=== PATIENT | female | born 1985 | race Caucasian/White ===

== ENCOUNTER 2021-01-06 10:11 | Emergency (ER) | payer OTHER, SELFPAY ==
--- NOTE | 2021-01-06 10:17 | ED.BACK ---
HPI - Back Pain/Injury General Chief Complaint: Back Pain/Injury Stated Complaint: back pain Time Seen by Provider: 01/06/21 10:16 Source: patient Mode of arrival: ambulatory Limitations: no limitations History of Present Illness HPI Narrative: Patient is a 35-year-old female who presents complaining of lower back pain x2 to 3 days. She has no known injury. She does report she lifts,twists, and bends frequently. She reports she does work out had not worked out until 2 days prior to start of pain. She reports increased pain with movement and muscle spasms. She denies all urinary complaints. She reports taking ibuprofen with moderate relief. She denies pain at this time, but reports will increase pain will increase with ambulation and movement. MD elicited complaint: back pain Related Data Allergies Allergy/AdvReac Type Severity Reaction Status Date / Time No Known Allergies Allergy Unknown Verified 05/29/08 08:45 Review of Systems Review of Systems: Narrative: CONSTITUTIONAL: Denies fever, chills, or sweats. EYES: Denies visual changes, redness, or discharge. ENT: Denies rhinorrhea, congestion, sore throat, or otalgia. CARDIOVASCULAR: Denies chest pain, palpitations, or edema. RESPIRATORY: Denies cough or dyspnea. GASTROINTESTINAL: Denies abdominal pain, nausea, vomiting, or diarrhea. GENITOURINARY: Denies dysuria or hematuria. SKIN: Denies rash or itching. MUSCULOSKELETAL: Reports lower back pain, denies numbness or tingling to extremities, denies loss of bowel or bladder control NEUROLOGIC: Denies headache, numbness, dizziness, or weakness. PSYCHIATRIC: Denies anxiety or depression. [facility] Past Medical History Medical History No significant past medical history Surgical History Surgical History No significant past surgical history Family History Family History Father Hypertension Mother Hypertension Family history of malignant neoplasm Other Family history of arthritis Social History Social History Smoking status: Never smoker Alcohol intake: current Gender identity (if verbalized by the patient): Female Comments At the time of signature, I have reviewed and agree with nursing past medical, surgical, social, and family history unless otherwise noted. Please see nursing chart for further information. There is no relevant family history pertinent to the presenting complaint. Exam Narrative: Exam Narrative: GENERAL: Well-appearing, well-nourished, and in no acute distress. HEAD: Normocephalic, atraumatic. EYES: EOMI. No redness or drainage. ENT: Mucous membranes pink and moist. CHEST: No respiratory distress. HEART: Regular rate and rhythm. GI: Soft, nontender without rebound, or guarding. MUSCULOSKELETAL: No bony tenderness. EXTREMITIES: Normal range of motion. No edema. SKIN: Warm, dry, no rash. NEURO: No focal deficits. Alert and oriented x3. Gait steady. PSYCH: Normal affect. No signs of depression or anxiety. Course Vital Signs Vital signs: Vital Signs Temperature 36.8 C 01/06/21 10:22 Pulse Rate 87 01/06/21 10:22 Respiratory Rate 16 01/06/21 10:22 Blood Pressure 136/95 H 01/06/21 10:22 Pulse Oximetry 98 01/06/21 10:22 Temperature 36.8 C 01/06/21 10:22 Pulse Rate 87 01/06/21 10:22 Respiratory Rate 16 01/06/21 10:22 Blood Pressure 136/95 H 01/06/21 10:22 Pulse Oximetry 98 01/06/21 10:22 Reviewed-patient is informed that they may have pre-hypertension or hypertension based on a blood pressure reading. I recommend the patient call the primary care provider listed on their discharge instructions or a physician of their choice this week to arrange follow-up for further evaluation of possible pre-hypertension or hypertension.
[2021-01-06 10:22] VITALS: BP 136/95; PULSE 87; RESP 16; TEMP 36.8; O2SAT 98
== END 2021-01-06 10:40 | disposition home or self-care (01) ==
PROVIDERS: Emergency Provider Nurse Practitioner; PCP Family Medicine
DX: M54.16 Radiculopathy, lumbar region (principal); S39.012A Strain of muscle, fascia and tendon of lower back, initial encounter; X58.XXXA Exposure to other specified factors, initial encounter
CPT/HCPCS: 99213; G0463

== ENCOUNTER 2021-04-20 10:13 | Emergency (ER) | payer OTHER, SELFPAY ==
--- NOTE | ~2021-04-20 | XR_ITS ---
EXAMINATION: XR chest 2V EXAM DATE: 04/20/2021 10:40 INDICATION: Cough x 2 weeks/sometimes productive. TECHNIQUE: Frontal and lateral projections of the chest obtained and reviewed. There is no prior noa dy for comparison. FINDINGS: The lungs are clear. There are no pleural effusions. The cardiomediastinal silhouette is within normal limits. There is no pneumothorax suspected. The bones and soft tissues are unremarkab le. IMPRESSION: Normal chest x-ray exam. Reviewed, dictated and finalized at location A. IMPRESSION: Normal chest x-ray exam.
[2021-04-20 10:23] VITALS: BP 127/88; PULSE 93; RESP 18; TEMP 36.4; O2SAT 100
[2021-04-20 10:26] VITALS: BP 127/88; PULSE 93; RESP 18; TEMP 36.4; O2SAT 100
--- NOTE | 2021-04-20 10:35 | ED.GENADULT ---
HPI - General Adult General Chief complaint: Urogenital-Female Stated complaint: UTI,Cough Source: patient Mode of arrival: ambulatory Limitations: no limitations History of Present Illness HPI narrative: Patient presents for evaluation of respiratory symptoms for last two and a half weeks. She indicates that she changed residence on April 02. She believes there is mold in the residence. 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 She reports clear rhinorrhea, productive cough of clear sputum, and bilateral eye itching. She denies any fever, chills, nausea, vomiting, body aches, sore throat, abdominal pain, shortness of breath, leg swelling or chest pain. No personal hx of DVT. No recent surgeries. She does not smoke. Over the last few days she has experienced some urinary incontinence during episodes of coughing. This morning she noticed some pink-tinged urine and blood on the tissue when wiping after urination. She has experienced some urinary frequency and mild dysuria. She denies any hesitancy or low back pain. History of regular menstruation. LMP 22 days ago. Not on contraception. Denies any vaginal discharge. Related Data Allergies Allergy/AdvReac Type Severity Reaction Status Date / Time No Known Allergies Allergy Unknown Verified 05/29/08 08:45 Review of Systems Review of Systems: Narrative: CONSTITUTIONAL: Denies fever, chills, or sweats. EYES: Denies visual changes, redness, or discharge. ENT: Reports rhinorrhea and some mild itching in the right ear. Denies sore throat CARDIOVASCULAR: Denies chest pain, palpitations, or edema. RESPIRATORY: Reports cough. Denies shortness of breath GASTROINTESTINAL: Denies abdominal pain, nausea, vomiting, or diarrhea. GENITOURINARY: Reports dysuria, urinary frequency, pink-tinged urine. Denies vaginal discharge SKIN: Denies rash or itching. MUSCULOSKELETAL: Denies back pain, joint pain, or myalgia. NEUROLOGIC: Denies headache, numbness, dizziness, or weakness. PSYCHIATRIC: Denies anxiety or depression. [facility] Past Medical History Medical History No significant past medical history Surgical History Surgical History No significant past surgical history Family History Family History Father Hypertension Mother Hypertension Family history of malignant neoplasm Other Family history of arthritis Social History Social History Smoking status: Never smoker Alcohol intake: current Gender identity (if verbalized by the patient): Female Exam Narrative: Exam Narrative: GENERAL: Well-appearing, well-nourished, and in no acute distress. HEAD: Normocephalic, atraumatic. EYES: PERRLA and EOMI. ENT: Nares clear, no rhinorrhea or epistaxis. Mucous membranes moist. Oropharynx without tonsillar hypertrophy exudate or other lesions. Bilateral TMs pearly starr nonbulging NECK: Supple. No adenopathy or masses. No carotid bruits or JVD CHEST: Clear to auscultation. No respiratory distress. No wheezes rales or rhonchi HEART: Regular rate and rhythm. No murmur heard. Normal peripheral pulses. ABDOMEN: Soft, nontender, nondistended, normal active bowel sounds. EXTREMITIES: Normal range of motion. No edema. SKIN: Warm, dry, no rash. NEURO: No focal deficits. Alert and oriented x3. PSYCH: Normal mood and affect. Course Course Emergency Course: This is a 35-year-old female who presents with respiratory symptoms for the last 2.5 weeks. This x-ray was negative. Urinalysis showed 1+ bilirubin, 3+ blood, trace protein. No evidence of infection. Pt started menstruation while here at the [facility]. Patient's symptoms are consistent with upper respiratory infection. She is having difficulty sleeping at night d
== END 2021-04-20 11:22 | disposition home or self-care (01) ==
PROVIDERS: Emergency Provider Nurse Practitioner; PCP Family Medicine
DX: J06.9 Acute upper respiratory infection, unspecified (principal)
CPT/HCPCS: 71046; 81003; 81025; 99213; G0463

== ENCOUNTER 2023-07-26 11:39 | Emergency (ER) | payer OTHER, SELFPAY ==
[2023-07-26 12:04] VITALS: BP 127/86; PULSE 99; RESP 20; TEMP 36.4; O2SAT 100
--- NOTE | 2023-07-26 12:11 | ED.GENADULT ---
HPI - General Adult General Chief complaint: Headache Stated complaint: headache Time Seen by Provider: 07/26/23 12:11 Source: patient, RN notes reviewed and old records reviewed Mode of arrival: ambulatory Limitations: no limitations History of Present Illness HPI narrative: 38-year-old female presents to the [facility] with complaints of a right-sided headache for 10 days. Has done a tele visit doc appointment, was prescribed diclofenac and promethazine. States that she did see her primary care provider, given medication which is not helping. Still having pain to the right temporal area. Reports nausea and vomiting associated. Occasional photo and phono sensitivity. Denies fevers. States that she does have hot flashes when this occurs. No neck or back pain. No change in vision. Per medical record had seen primary care provider on , given Ubrelvy and Nurtec. Per this medical record states that she was seen at an urgent care the day before, given diclofenac. States the pain was really bad last night. States she had a worse pain last night, was not able to move or get to the emergency room because she could not stop vomiting and the pain was so severe. Patient requesting an MRI and blood work. Explained to patient that we do not do blood work nor advanced testing. States that she tried calling her primary care provider and can not get an appointment until 230 tomorrow afternoon. Onset (ago): day(s) () Location: head Associated symptoms: headaches, nausea/vomiting and weakness Treatments prior to arrival: NSAID and other (Multiple prescription) Related Data Home Medications Medication Instructions Recorded Confirmed cetirizine 10 mg tablet 10 mg PO DAILY 07/26/23 07/26/23 diclofenac potassium 50 mg tablet 50 mg PO DAILY PRN Headache 07/26/23 07/26/23 promethazine 25 mg tablet 25 mg PO PRN PRN Nausea 07/26/23 07/26/23 Allergies Allergy/AdvReac Type Severity Reaction Status Date / Time No Known Allergies Allergy Unknown Verified 07/26/23 12:35 Review of Systems Review of Systems: All systems reviewed & are unremarkable except as noted in HPI and below Constitutional: Constitutional: Reports no additional constitutional complaints Eyes: Eyes: Reports no additional eye complaints ENT: Reports system reviewed and no additional complaints, except as documented Cardiovascular: Cardiovascular: Reports no additional cardiovascular complaints, Denies chest pain and Denies dyspnea Respiratory: Respiratory: Reports no additional respiratory complaints, Denies chest congestion, Denies cough and Denies dyspnea Gastrointestinal: Gastrointestinal: Reports as per HPI, Denies abdominal pain, Reports nausea and Reports vomiting Musculoskeletal: Musculoskeletal: Reports no additional musculoskeletal complaints Integumentary/Breasts: Skin/Breast: Reports system reviewed and no additional complaints, except as docu Neurologic: Reports as per HPI and Reports dizziness Psychiatric: Psychiatric: Reports no additional psychiatric complaints Allergic/Immunologic: Allergic/Immunologic: Reports no additional allergic/immunologic complaints [facility] Past Medical History Medical History No significant past medical history Surgical History Surgical History No significant past surgical history Family History Family History Father Hypertension Mother Hypertension Family history of malignant neoplasm Other Family history of arthritis Social History Social History Smoking status: Never smoker Alcohol intake: current Gender identity (if verbalized by the patient): Female Comments At the time of my signature, I reviewed and agree with the nursing past medical, surgical, social, and family history. The
== END 2023-07-26 12:26 | disposition short-term general hospital (02) ==
PROVIDERS: Emergency Provider Nurse Practitioner; PCP Family Medicine
DX: R51.9 Headache, unspecified (principal)
CPT/HCPCS: 99213; G0463

== ENCOUNTER 2023-07-26 12:40 | Emergency (ER) | payer OTHER, SELFPAY ==
--- NOTE | ~2023-07-26 | CT_ITS ---
EXAMINATION: CT brain wo con DATE: 07/26/2023 18:03 INDICATION: migraine X10d, N/V, dizziness . TECHNIQUE: Computed tomography (CT) of the head was performed without intravenous contrast. The mA wa s adjusted according to patient size. Iterative reconstruction technique was employed. The dose-lengt h product was 605.33 mGy-cm. COMPARISON: None. FINDINGS: No acute intracranial hemorrhage or extra-axial fluid collection. No hydrocephalus, mass, or herniation. No acute ischemic infarct. Unremarkable dural venous sinus attenuation. No acute osseous abnormality. The aerated spaces are clear. IMPRESSION: No acute intracranial process. Reviewed, dictated and finalized at location K.
[2023-07-26 13:15] VITALS: BP 135/95; PULSE 88; RESP 18; TEMP 36.6; O2SAT 98
[2023-07-26] MEDS: METOCLOPRAMIDE HCL INJ 10 MG/2 ML VIAL IV PUSH (17:34)
[2023-07-26] MEDS: diphenhydrAMINE HCl INJ 50 MG/ML VIAL 25 MG IV PUSH (17:34)
[2023-07-26] MEDS: SODIUM CHLORIDE 0.9% IV 1,000 ML 999 ML IV CONT (17:35)
[2023-07-26] MEDS: ACETAMINOPHEN 500 MG TABLET 1000 MG PO (17:35)
--- NOTE | 2023-07-26 17:57 | ED.HA ---
HPI - Headache General Chief Complaint: Headache Stated Complaint: headache Time Seen by Provider: 07/26/23 16:51 Source: patient Mode of arrival: ambulatory Limitations: no limitations History of Present Illness HPI Narrative: Patient is a 38-year-old female who presents ED with report of headache. Patient reports she woke up last Wednesday morning with a diffuse frontal and temporal headache. She states it has persisted since then, intermittently worsening in intensity. She has tried several medications including Ubrelvy, Nertec, advil, tylenol, excedrin w/o much relief. She states the pain became much worse last night and she thought about coming to the ED at that time. She noted having photophobia, dizziness, lightheadedness, N/V last night. She was unable to keep medications down for pain last night. Her pain did improve somewhat when she woke up this morning. She did not take anything for pain today. She states her pain is not as severe today as it was last night, but she is concerned that it has lasted this long. Patient does have history of migraines since [facility] and states this does feel typical of her usual migraines, though they do not usually persist this long. Patient denies any fevers, neck pain, focal weakness, vision changes, cough or cold symptoms, abdominal pain. Related Data Home Medications Medication Instructions Recorded Confirmed cetirizine 10 mg tablet 10 mg PO DAILY 07/26/23 07/26/23 diclofenac potassium 50 mg tablet 50 mg PO DAILY PRN Headache 07/26/23 07/26/23 promethazine 25 mg tablet 25 mg PO PRN PRN Nausea 07/26/23 07/26/23 Allergies Allergy/AdvReac Type Severity Reaction Status Date / Time No Known Allergies Allergy Unknown Verified 07/26/23 12:35 Review of Systems Review of Systems: CONSTITUTIONAL: Denies fever, chills, or sweats. EYES: Denies visual changes. ENT: Denies rhinorrhea, congestion, sore throat. CARDIOVASCULAR: Denies chest pain. RESPIRATORY: Denies cough or dyspnea. GASTROINTESTINAL: See HPI. MUSCULOSKELETAL: Denies neck pain, back pain, joint pain, or myalgia. NEUROLOGIC: See HPI. All systems reviewed & are unremarkable except as noted in HPI and below PMFSH Past Medical History Medical History No significant past medical history Surgical History Surgical History No significant past surgical history Family History Family History Father Hypertension Mother Hypertension Family history of malignant neoplasm Other Family history of arthritis Social History Social History Smoking status: Never smoker Alcohol intake: current Gender identity (if verbalized by the patient): Female Exam Narrative: GENERAL: Well appearing, obese with BMI of 39.6, non-toxic, in no acute distress. HEAD: Normocephalic, atraumatic. EYES: PERRL/EOMI, conjunctivae clear bilaterally. No nystagmus. NECK: Supple. No adenopathy, no masses. No meningeal signs. RESPIRATORY: Airway patent, respirations nonlabored. Clear to auscultation bilaterally, no rales, rhonchi, wheezing. CARDIOVASCULAR: Regular rate and rhythm without murmurs, rubs, or gallops. Peripheral pulses 2+ and equal bilaterally. ABDOMINAL: Soft, nontender, nondistended, no hepatosplenomegaly. Normoactive BS. MUSCULOSKELETAL: Moves all extremities. Strength/ROM intact without gross deformities. SKIN: Warm, dry, normal color. No rashes. NEURO: A&O X3. Speech clear. Follows commands. CN II-XII grossly intact. Sensation grossly intact. Steady gait. No ataxic movements. Strength 5/5 in upper and lower extremities bilaterally. 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 No focal deficits. PSYCHIATRIC: Appropriate mood and affect. Normal interaction. Course Vital Signs Vital signs:
[2023-07-26] MEDS: KETOROLAC 30 MG/ML VIAL (*BKC) IV PUSH (18:24)
[2023-07-26 19:35] VITALS: BP 132/84; PULSE 80; RESP 14; O2SAT 99
== END 2023-07-26 19:37 | disposition home or self-care (01) ==
PROVIDERS: Emergency Provider Physician Assistant; PCP Family Medicine
DX: G43.909 Migraine, unspecified, not intractable, without status migrainosus (principal)
CPT/HCPCS: 70450; 96361; 96374; 96375; 99284; A9270; J1100; J1200; J1885; J2765; J7030

== ENCOUNTER 2024-06-24 14:24 | Emergency (ER) | payer OTHER, SELFPAY ==
--- NOTE | 2024-06-24 14:29 | ED.GENADULT ---
HPI - General Adult General Chief complaint: Wound/Laceration Stated complaint: left elbow laceration Time Seen by Provider: 06/24/24 14:29 Source: patient Mode of arrival: ambulatory Limitations: no limitations History of Present Illness HPI narrative: 39-year-old female patient presents to the [facility] with complaints of a laceration to the left elbow. Patient states that she accidentally put her elbow through a glass window on a door. Patient aware of when her last tetanus shot was. Related Data Home Medications Medication Instructions Recorded Confirmed cetirizine 10 mg tablet 10 mg PO DAILY 07/26/23 06/24/24 Allergies Allergy/AdvReac Type Severity Reaction Status Date / Time No Known Allergies Allergy Unknown Verified 06/24/24 14:27 Review of Systems Review of Systems: CONSTITUTIONAL: Denies fever, chills, or sweats. EYES: Denies visual changes, redness, or discharge. ENT: Denies rhinorrhea, congestion, sore throat, or otalgia. CARDIOVASCULAR: Denies chest pain, palpitations, or edema. RESPIRATORY: Denies cough or dyspnea. GASTROINTESTINAL: Denies abdominal pain, nausea, vomiting, or diarrhea. GENITOURINARY: Denies dysuria or hematuria. SKIN: Denies rash or itching. Positive laceration to left elbow MUSCULOSKELETAL: Denies back pain, joint pain, or myalgia. NEUROLOGIC: Denies headache, numbness, or weakness. PSYCHIATRIC: Denies anxiety or depression. PMFSH Past Medical History Medical History No significant past medical history Surgical History Surgical History No significant past surgical history Family History Family History Father Hypertension Mother Hypertension Family history of malignant neoplasm Other Family history of arthritis Social History Social History Smoking status: Never smoker Alcohol intake: current Gender identity (if verbalized by the patient): Female Comments At the time of my signature I agree with nursing past medical history, surgical, social, and family history. There is no relevant family history pertinent to the presenting complaint. Exam Narrative: GENERAL: Well-appearing, well-nourished, and in no acute distress. HEAD: Normocephalic, atraumatic. EYES: PERRLA and EOMI. ENT: Nares clear, no rhinorrhea or epistaxis. Mucous membranes moist. NECK: Supple. No lymphadenopathy CHEST: Clear to auscultation. No respiratory distress. HEART: Regular rate and rhythm. No murmur heard. Normal peripheral pulses. ABDOMEN: Soft, nontender, nondistended, normal active bowel sounds. EXTREMITIES: Normal range of motion. No edema. SKIN: Warm, dry, no rash. patient has approximately 2.5 x 1 cm laceration with exposed fat noted to the left elbow. NEURO: No focal deficits. Alert and oriented x3. Course Course Level of Care: Express Care Visit Vital Signs Vital signs: Vital Signs Temperature 35.9 C L 06/24/24 14:31 Pulse Rate 83 06/24/24 14:31 Respiratory Rate 16 06/24/24 14:31 Blood Pressure 144/97 H 06/24/24 14:31 Pulse Oximetry 99 06/24/24 14:31 Oxygen Delivery Room Air 06/24/24 14:31 Temperature 35.9 C L 06/24/24 14:31 Pulse Rate 83 06/24/24 14:31 Respiratory Rate 16 06/24/24 14:31 Blood Pressure 144/97 H 06/24/24 14:31 Pulse Oximetry 99 06/24/24 14:31 Oxygen Delivery Room Air 06/24/24 14:31 vital signs reviewed. The patient has been informed that they may have pre-hypertension or Hypertension based on a BP reading in the department. I recommend that the patient call the primary care provider listed on their discharge instructions or a physician of their choice this week to arrange follow up for further evaluation of possible pre-hypertension or Hypertension Procedures Laceration Lacer
[2024-06-24 14:31] VITALS: BP 144/97; PULSE 83; RESP 16; TEMP 35.9; O2SAT 99
[2024-06-24] MEDS: TETANUS,DIPHTHERIA,AC PERTUSSIS ADULT (0.5 ML) BOOSTRIX IM (14:45)
== END 2024-06-24 15:02 | disposition home or self-care (01) ==
PROVIDERS: Emergency Provider Nurse Practitioner Family; PCP Family Medicine
DX: S51.012A Laceration without foreign body of left elbow, initial encounter (principal); W25.XXXA Contact with sharp glass, initial encounter; Z23 Encounter for immunization
CPT/HCPCS: 12001; 90471; 90715; 99212; G0463